=== PATIENT | female | born 1990 | race African-American/Black ===

== ENCOUNTER → 2017-08-09 | Outpatient (CLI) | payer OTHER ==
[2017-08-09 15:18] LABS: BASOPHILS % (AUTO) 0.4 % (0.2-1.0); EOSINOPHILS # (AUTO) 0.1 x10^3/uL (0.0-0.2); EOSINOPHILS % (AUTO) 0.5 % (0.9-2.9); HEMATOCRIT 32.2 % (36.0-47.0); HEMOGLOBIN 10.8 g/dL (12.0-16.0); LYMPHOCYTES % (AUTO) 14.8 % (21.0-51.0); MEAN CORPUSCULAR HEMOGLOBIN 26.9 pg (27.0-34.0); MEAN CORPUSCULAR HGB CONC 33.5 g/dL (33.0-35.0); MEAN CORPUSCULAR VOLUME 80.4 fL (80.0-100.0); MEAN PLATELET VOLUME 9.6 fL (7.4-11.0); MONOCYTES # (AUTO) 0.8 x10^3/uL (0.3-0.8); MONOCYTES % (AUTO) 6.2 % (0.0-13.0); NEUTROPHILS # (AUTO) 10.5 x10^3/uL (2.2-4.8); NEUTROPHILS % (AUTO) 78.1 % (42.0-75.0); PLATELET COUNT 245 X10^3/uL (150.0-450.0); RED BLOOD COUNT 4.01 X10^6/uL (3.5-5.4); RED CELL DISTRIBUTION WIDTH 15.5 % (11.6-16.5); WHITE BLOOD COUNT 13.4 X10^3/uL (3.6-10.0)
[2017-08-09 15:24] LABS: BILIRUBIN,URINE 1+ (NEGATIVE); BLOOD/HEMOGLOBIN,URINE NEGATIVE (NEGATIVE); GLUCOSE, URINE NEGATIVE (NEGATIVE); KETONES,URINE 1+ (NEGATIVE); LEUKOCYTE ESTERASE ,URINE 2+ (NEGATIVE); NITRITES,URINE NEGATIVE (NEGATIVE); PH,URINE 6.5 (5.0 - 8.0); PROTEIN,URINE 2+ (NEGATIVE); UROBILINOGEN,URINE 4+ (NORMAL)
[2017-08-09 15:24] LABS: BLOOD UREA NITROGEN 4 mg/dL (7-18); CALCIUM 8.6 mg/dL (8.5-10.1); CARBON DIOXIDE 26.6 mmol/L (21-32); CHLORIDE 104 mmol/L (98-107); CREATININE 0.68 mg/dL (0.55-1.02); SODIUM 138 mmol/L (136-145); eGFR BLACK RACES > 60 (>60); eGFR NON BLACK RACES > 60 (>60)
[2017-08-09 15:36] LABS: APPEARANCE,URINE CLOUDY (CLEAR); COLOR,URINE DARK YELLOW (YELLOW)
[2017-08-09 15:37] LABS: BACTERIA,URINE 3+ /HPF (NEGATIVE); SQUAMOUS EPITHELIAL CELL,UR MANY /HPF (NEGATIVE)
== END ==
LOC: LAB 14:38
PROVIDERS: ATTEND Specialist
DX: Z01.818 Encounter for other preprocedural examination (principal); Z01.812 Encounter for preprocedural laboratory examination; Z34.83 Encounter for supervision of other normal pregnancy, third trimester
CPT/HCPCS: 36415; 80048; 81001; 85025; 86592; 86850; 86900; 86901; 87086

== ENCOUNTER 2017-08-11 06:31 | Inpatient (IN) | payer OTHER ==
[~2017-08-11 06:31] MED LIST: AMPICILLIN VIAL 2 GM ONE; D5 1/2 NS 1000 ML 1,000 ML IV ONE; D5 1/2 NS 1L W PITOCIN 20 UNITS/L 20 UNITS/1,000 ML BAG IV ONE; D5LR 1L W PITOCIN 10 UNITS/L 10 UNITS/1,000 ML BAG IV ONE; NS 100 ML IV 100 ML IV ONE; PITOCIN ONE
[2017-08-11] MEDS ORDERED: D5LR 1L W PITOCIN 10 UNITS/L 10 UNITS/1,000 ML BAG IV PRN ×2 (07:19→11:58)
[2017-08-11] MEDS ORDERED: PITOCIN IVP ONE (07:19)
[2017-08-11] MEDS ORDERED: MORPHINE SULFATE INJ 2 MG INJ IVP PRN (07:19)
[2017-08-11] MEDS ORDERED: D5 1/2 NS 1000 ML 1,000 ML IV SCH (07:19)
[2017-08-11] MEDS ORDERED: NUBAIN INJ 200 MG VIAL MULTIDOSE IVP PRN (07:19)
[2017-08-11] MEDS ORDERED: PHENERGAN INJ 25 MG IV PRN ×2 (07:19→11:58)
[2017-08-11] MEDS ORDERED: REGLAN INJ 10 MG VIAL IVP PRN ×3 (07:19→11:58)
[2017-08-11] MEDS ORDERED: AMPICILLIN VIAL 2 GM 2 GM in NS 100 ML IV + SPIKE MINIBAG* 100 ML IV SCH (07:19)
[2017-08-11 07:33] LABS: BILIRUBIN,URINE NEGATIVE (NEGATIVE); BLOOD/HEMOGLOBIN,URINE NEGATIVE (NEGATIVE); GLUCOSE, URINE NEGATIVE (NEGATIVE); KETONES,URINE NEGATIVE (NEGATIVE); LEUKOCYTE ESTERASE ,URINE NEGATIVE (NEGATIVE); NITRITES,URINE NEGATIVE (NEGATIVE); PROTEIN,URINE NEGATIVE (NEGATIVE); UROBILINOGEN,URINE 1+ (NORMAL)
[2017-08-11 07:45] LABS: APPEARANCE,URINE CLEAR (CLEAR); BACTERIA,URINE TRACE /HPF (NEGATIVE); COLOR,URINE YELLOW (YELLOW); RBC,URINE 0-3 /HPF (NEGATIVE); SQUAMOUS EPITHELIAL CELL,UR MODERATE /HPF (NEGATIVE)
--- NOTE | 2017-08-11 07:46 | DR.OB ---
OB Quick Note - Assessment/Plan Assessment/Plan: L&D 08/11/17 at 7:03am S-No complaint. O-Afebrile,VSS RWV=148 with good LTV, +accel, no decel. CTX=none CVX=3cm/thick/-1/VTX AROM with clear fluid. IUPC and FSE placed. A-IUP at 38 5/7 weeks for induction +GBS IUGR P-Begin pitocin induction IV ABX in labor for +GBS Anticipate
[2017-08-11] MEDS: AMPICILLIN VIAL 1 GM 1 GM in NS 50 ML IV + SPIKE MINIBAG* 50 ML IV SCH ×2 (08:41→08:43)
[2017-08-11] MEDS ORDERED: LR 1000 ML IV 1,000 ML IV ONE ×3 (08:56→11:04)
[2017-08-11] MEDS ORDERED: NS 1000 ML 1,000 ML IV ONE (09:00)
[2017-08-11] MEDS ORDERED: NS 1000 ML 1,000 ML ONE (09:04)
[2017-08-11] MEDS ORDERED: XYLOCAINE 1 % (PLAIN) ONE (09:49)
[2017-08-11] MEDS ORDERED: NAROPIN EPIDURAL 0.2% + FENTANYL 90MCG EPI SCH (10:00)
[2017-08-11] MEDS ORDERED: XYLOCAINE 2% and EPINEPHRINE 1:100,000 ONE (10:13)
[2017-08-11] MEDS ORDERED: ANCEF VIAL 1 GM ONE (10:19)
[2017-08-11] MEDS ORDERED: NS 50 ML IV + SPIKE MINIBAG* 50 ML IV ONE (10:19)
[2017-08-11] MEDS ORDERED: FENTANYL INJ 250 mcg ONE (10:28)
[2017-08-11] MEDS ORDERED: DURAMORPH ONE (10:53)
[2017-08-11] MEDS ORDERED: NS IRRIGATION 1000 ML 1,000 ML IR ONE (11:00)
[2017-08-11] MEDS ORDERED: TORADOL 30 MG VIAL ONE (11:34)
[2017-08-11] MEDS ORDERED: BENADRYL INJ 50 MG VIAL IVP PRN ×2 (11:36→11:58)
[2017-08-11] MEDS ORDERED: PHENERGAN INJ 25 MG IVP PRN (11:36)
[2017-08-11] MEDS ORDERED: ZOFRAN INJ 4 MG VIAL IVP PRN ×2 (11:36→11:58)
[2017-08-11] MEDS ORDERED: PERCOCET TAB 5/325 MG PO PRN (11:58)
[2017-08-11] MEDS ORDERED: MYLICON TAB 80 MG CHEW PO PRN (11:58)
[2017-08-11] MEDS ORDERED: TORADOL 30 MG VIAL IVP PRN (11:58)
[2017-08-11] MEDS ORDERED: ADACEL TDaP IM ONE (11:58)
[2017-08-11] MEDS ORDERED: NARCAN INJ IVP PRN (11:58)
[2017-08-11] MEDS ORDERED: D5 1/2 NS 1000 ML 1,000 ML with PITOCIN 20 UNITS IV SCH ×2 (12:00)
--- NOTE | 2017-08-11 12:18 | RAD ---
HISTORY: Status post , instrument count Study: Single-view abdomen Comparison: None Findings: Evaluation of the abdomen demonstrates a normal bowel gas pattern. No pathological soft tissue mass or calcification can be observed. The bony structures are grossly intact. No radiopaque foreign body to suggest retained foreign body can be identified. IMPRESSION: 1. Unremarkable evaluation of the abdomen. Specifically, no evidence for retained surgical instrumen t. Reported By:
[2017-08-11] MEDS ORDERED: NORCURON INJ 10 MG VIAL ONE (15:32)
[2017-08-11] MEDS ORDERED: VERSED ONE (15:32)
[2017-08-11] MEDS ORDERED: PITOCIN ONE (15:32)
[2017-08-11] MEDS ORDERED: NEOSTIGMINE INJ ONE (15:32)
[2017-08-11] MEDS ORDERED: NEO-SYNEPHRINE INJ ONE (15:32)
[2017-08-11] MEDS ORDERED: ROBINUL ONE (15:32)
[2017-08-11] MEDS ORDERED: XYLOCAINE 2 % (PLAIN) ONE (15:32)
[2017-08-11] MEDS ORDERED: SUPRANE IN ONE (15:32)
[2017-08-11] MEDS ORDERED: DIPRIVAN VIAL ONE (15:32)
[2017-08-11] MEDS ORDERED: QUELICIN (OR ANECTINE) ONE (15:32)
[2017-08-11] MEDS ORDERED: ZOFRAN INJ 4 MG VIAL ONE (15:32)
[2017-08-11] MEDS: ZANTAC PO SCH (20:54)
[2017-08-11] MEDS: PERCOCET TAB 5/325 MG PO PRN (20:54)
[2017-08-12] MEDS: PERCOCET TAB 5/325 MG PO PRN ×4 (03:20→21:11)
[2017-08-12 05:29] LABS: HEMOGLOBIN 8.3 g/dL (12.0-16.0)
[2017-08-12] MEDS ORDERED: MOTRIN TAB 800 MG PO PRN (05:52)
[2017-08-12] MEDS: BACTROBAN OINT TOP SCH ×3 (06:24→21:02)
[2017-08-12] MEDS: COLACE CAP 100 MG PO SCH ×2 (09:52→21:04)
[2017-08-12] MEDS: ZANTAC PO SCH ×2 (09:52→21:04)
[2017-08-12] MEDS: PRENATAL PLUS PO SCH (09:52)
[2017-08-12] MEDS: FERROUS SULFATE PO SCH ×2 (09:52→17:45)
[2017-08-13] MEDS: PERCOCET TAB 5/325 MG PO PRN (03:30)
[2017-08-13] MEDS: BACTROBAN OINT TOP SCH (05:47)
[2017-08-13] MEDS ORDERED: DEPO-PROVERA CONTRACEPTIVE INJ IM ONE (08:27)
[2017-08-13] MEDS: COLACE CAP 100 MG PO SCH (08:49)
[2017-08-13] MEDS: FERROUS SULFATE PO SCH (08:49)
[2017-08-13] MEDS: ZANTAC PO SCH (08:49)
[2017-08-13] MEDS: PRENATAL PLUS PO SCH (08:49)
[2017-08-13 09:54] VITALS: BP 124/75
== END 2017-08-13 11:30 | disposition home or self-care (01) | DRG 766 ==
LOC: LD 06:31 → MED/SURG 12:06
PROVIDERS: ADMIT Specialist; ATTEND Specialist
PROC: 10D00Z1 Extraction of Products of Conception, Low, Open Approach (ICD-10-PCS; principal; 2017-08-11 10:15)
DX: O76 Abnormality in fetal heart rate and rhythm complicating labor and delivery (principal); Z37.0 Single live birth; O26.893 Other specified pregnancy related conditions, third trimester; O99.824 Streptococcus B carrier state complicating childbirth; Z3A.38 38 weeks gestation of pregnancy
CPT/HCPCS: 36415; 74000; 80048; 80307; 81001; 85014; 85018; 85025; 86592; 86850; 86900; 86901; 87086; 94640; A4216; A4222; S0197; G0434; J0290; J0330; J0690; J1050; J1885; J2001; J2250; J2370; J2405; J2590; J2710; J3010; J3490; J7042; J7120